=== PATIENT | female | born 1985 | race Caucasian/White ===

== ENCOUNTER 2022-03-08 00:55 | Day surgery (SDC) | payer BC, SELFPAY ==
[2022-03-02 14:48] VITALS: BMI 35.2
--- NOTE | 2022-03-02 14:49 | PC.NURSE ---
Report to the Outpatient Waiting Room, entrance under the green pavilion located off [facility], at time ___1030____ on date _03/08/22____. OR Time: ____1230____. - You and your visitor will be asked a series of questions to screen for COVID 19 for your protection. - Only one visitor is allowed at this time. - The patient visitor is requested to leave or wait in car when not with patient. - A mask is required within the hospital. Patients may have clear liquids (water, carbonated beverages, clear teas, apple juice) until 3 hours prior to surgery with a maximum of 20 ounces. - No food from midnight until time of surgery - Infants may have breast milk until 4 hours before surgery, infant formula 6 hours prior to surgery. - Children will be allowed to drink immediately following surgery. If applicable, please bring a bottle or sippy cup to assist with drinking. Juice, water, soda, and popsicles are readily available. For infants on formula, please bring formula the day of surgery. Pacifiers are allowed. Take the following medications with a SIP of water the morning of surgery: ____LEVOTHYROXINE Medications to discontinue per physician Date to take last dose Please no make-up, nail frisian, hairspray, perfume, deodorant, or body powder the day of surgery. No jewelry (including any body piercings) or valuables the day of surgery, leave them at home. Please take a shower or bath the night before, or the morning of, surgery with an antibacterial soap. Wear comfortable, loose fitting clothing. Children are encouraged to wear pajamas. - Jewelry must be removed prior to entering the operating room. Rings and piercings that are not removed may be cut off. - The hospital will not accept responsibility for valuables. - Please leave all valuables, including medications, at home the day of surgery. If you are going home after surgery, a licensed lease purchase driver must drive you home. - NO public transportation without another adult. - We recommend that an adult stay with you for 24 hours following discharge. - We also recommend that you do not drive, make important decision, drink alcoholic beverages, or take any drugs that were not prescribed by your health care provider for at least 24 hours after your discharge time. For Pediatric surgeries, we recommend two adults accompany the child home (only one inside the building at this time). Follow any additional instructions given to you from your surgeon. If you or anyone in your household have experienced Covid symptoms in the past week, please notify your surgeon or the nurse liaison at the phone number below for possible testing. Telephone instructions given to ____PATIENT and asked if any additional questions and then verbalized understanding. Patient advised to call surgeon office or pre surgery nurse liaison [phone] if any additional questions.
[2022-03-08] VITALS (10 sets, daily range): BP systolic 121–150; BP diastolic 69–104; PULSE 56–112; RESP 12–20; TEMP 36.2–36.3; O2SAT 92–100
[2022-03-08] MEDS: LACTATED RINGERS 1,000 ML 30 ML IV CONT ×2 (10:30→15:12)
[2022-03-08 10:37] LABS: Urine Cotinine NEGATIVE
--- NOTE | 2022-03-08 11:13 | WPDANESEPPF ---
Anes - Initial Pre Proc Eval Procedure: Operation Date: 03/08/22 12:30 Proposed Procedures p Bilateral Breast Reduction - Emanuel Palacio MD Date/Time: 03/08/22 11:13 Surgeon: Emanuel Palacio MD Pre Op Diagnosis: macromastia Patient Data Age: 37 Gender: F Height: 1.75 m Weight: 108 kg Allergies Allergy/AdvReac Type Severity Reaction Status Date / Time No Known Allergies Allergy Unverified 03/02/22 14:41 Home Medications Medication Instructions Recorded Confirmed Type levothyroxine 25 mcg capsule 50 mcg PO DAILY 12/28/21 03/02/22 History sertraline 25 mg tablet 25 mg PO HS 12/28/21 03/02/22 History docusate sodium 100 mg capsule 100 mg PO DAILY #14 cap 02/28/22 03/02/22 Rx ondansetron HCl 4 mg tablet 4 mg PO Q8H #21 tablet 02/28/22 Rx hydrocodone 5 mg-acetaminophen 325 1 tablet PO Q6H PRN #30 tablet 03/01/22 03/01/22 Rx mg tablet fexofenadine [Bushra] 60 mg PO Q12H PRN 03/02/22 03/02/22 History Laboratory Tests 03/08/22 10:19 Cotinine Negative Patient hx anesthesia problems: none Family hx anesthesia problems: none Results Review: All pre-operative results and documents have been reviewed as part of the pre-operative evaluation. [facility] Family History Family History Sibling Diabetes mellitus Social History Social History Smoking status: Never smoker Alcohol intake: never Substance use: never Living arrangements: with family Anes - Eval Final PreProcedure Day of Procedure 03/08/22 11:13 Patient weight: obese Heart: regular rate and rhythm Lungs: clear to auscultation Airway: Mallampati scale class II Neurological: alert and oriented Last oral intake: >/= 8 hours ASA classification: II Emergent: no Anesthetic plan: proceed Anesthesia type and monitoring: general GIVS and standard monitoring Results Review: All pre-operative results and documents have been reviewed as part of the pre-operative evaluation. Informed Consent: The patient's anesthetic plan and its attendant risks and benefits were discussed with the patient/family/POA. Questions were solicited and answers provided to the satisfaction of the patient/family/POA.
--- NOTE | 2022-03-08 12:02 | W.PM.PROC2 ---
Procedure Note - Detailed Date of Procedure 03/08/22 Pre-op Diagnosis macromastia Post-op Diagnosis Same Procedure Performed Bilateral reduction mammaplasty Surgeon Emanuel Palacio MD Anesthesia General Findings Inverted T Superior medial pedicle Tissue removed: Right - 1078 grams Left - 1414 grams Lipoaspirate Description of Procedure She is here today for bilateral breast reduction. Previously and again today the risks, benefits, alternatives were discussed in extensive detail. I wanted her to be very realistic about the risks involved as well as expectations. She has significant asymmetry and understands she will never have perfect symmetry. We discussed aftercare and what to monitor for. She understands we can never guarantee final breast size and there will always be asymmetry. I was very upfront and honest about the risks of sensation change and even nipple loss (). Made sure answered all of her questions to her satisfaction today and consent was obtained. She was marked in the preoperative holding area with their verification. The patient was taken to the operating room placed supine on the operating table. Anesthesia was provided by anesthesiology. She was prepped and draped in a standard sterile fashion. A surgical time-out was taken. Stab incisions were made and I tumessed with a tumescent solution. I marked out the nipple-areolar complex at 42 mm. I then de-epithelialized the pedicle. The pedicle was well left well more than 2 cm in thickness. I then removed the inferior portion of the breast as well as the central keel to get shape based on preoperative planning. At this point copiously irrigated with saline solution and verified a strict hemostasis. I reapproximated the pillars using a 2-0 PDS. I tailor tacked the breast into place with santo. She was placed in a sitting position. I verified the nipple-areolar complex position based on preoperative markings, intraoperative measurements, and observation which were in full agreement. This nipple-areolar complex was marked at 42 mm in size. She had asymmetry / lateral irregularity which was treated by suction lipectomy as part of the procedure utilizing a 5mm basket cannula based on S.A.F.E. technique. This was to observation and rolling pinch test. I then placed supine and de-epithelialized this. Nipple-areolar complex was inset with 3-0 Monocryl. I closed IMF deep with 1 strattafix. I closed the vertical incision with 3-0 Monocryl in the IMF with 3-0 stratafix. Then everything was closed using a running subcuticular 4-0 Monocryl followed by Steri-Strips. A dressing was placed followed by surgical bra. Patient was awoke and taken to PACU without difficulty. All instrument sponge counts were correct at the end of the case. Estimated Blood Loss 100 Drains No Packing No Pathology Yes (bilateral breast tissue) Complications No immediate complications Condition Stable Disposition PACU
--- NOTE | 2022-03-08 12:05 | WPDHPUPDATE1 ---
History and Physical Update Update Date/Time: 03/08/22 12:05 History and Physical has been reviewed, including an updated exam of the patient. There are NO changes in the patient's condition. Risks, benefits, and alternatives have been discussed and questions answered. Patient agrees to proceed with procedure.
[2022-03-08] MEDS: LACTATED RINGERS IRRIG 1,000 ML, LIDOCAINE HCL 1% LOCAL INJ 50 ML, EPINEPHrine HCL INJ ... INFILTRATE (12:10)
[2022-03-08] MEDS: ceFAZolin 2 GM/D5W 50 ML 2 GM/50 ML BAG IVPB (12:10)
[2022-03-08] MEDS: TRANEXAMIC ACID 1,000MG/ISO100 1,000 MG/100 ML BAG 200 MG IVPB (12:25)
--- NOTE | 2022-03-08 14:53 | SUR.OPER ---
EBL:[id number]
[2022-03-08] MEDS: fentaNYL CITRATE INJ (*CRX) 100 MCG/2 ML VIAL 25 MCG IV PUSH ×4 (15:37→16:21)
[2022-03-08] MEDS: oxyCODONE HCL (*CRX) 5 MG TAB IR PO (16:55)
== END 2022-03-08 17:49 | disposition home or self-care (01) ==
PROVIDERS: Visit Provider Surgery Plastic and Reconstructive Surgery
PROC: 0HBV0ZZ Excision of Bilateral Breast, Open Approach (ICD-10-PCS; CPT 19318; principal; 2022-03-08 12:30)
DX: N62 Hypertrophy of breast (principal); N60.32 Fibrosclerosis of left breast; N60.31 Fibrosclerosis of right breast; N60.42 Mammary duct ectasia of left breast; N60.41 Mammary duct ectasia of right breast; N60.22 Fibroadenosis of left breast; E66.9 Obesity, unspecified; Z68.34 Body mass index [BMI] 34.0-34.9, adult; Z79.899 Other long term (current) drug therapy
CPT/HCPCS: 19318; 80307; 88305; A9270; J0171; J0690; J1100; J1170; J2250; J2405; J2704; J3010; J7120